=== PATIENT | male | born 1935 | race Caucasian/White ===

== ENCOUNTER 2016-11-11 21:43 | Inpatient (IN) | payer OTHER ==
[2016-11-11] MEDS ORDERED: MORPHINE IV ONE (23:17)
[2016-11-11] MEDS ORDERED: ZOFRAN IV ONE (23:18)
--- NOTE | 2016-11-11 23:18 | PROVIDER DOCUMENTATION ---
HPI-Musculoskeletal Pain/Inj - GENERAL Chief Complaint: Fall Stated Complaint: FALL Time Seen by Provider: 11/11/16 22:34 Source: patient, family - HX OF PRESENT ILLNESS-MUSKULOSKELTAL Nature of Presenting Problem: 81 year old WM presents with c/o left hip pain. just prior to arrival, pt was attempting to stand from the sitting position, lost his balance and fell onto a carpeted floor, his left hip landing first. pt denies any other trauma/injury. Quality of Pain: reports: aching, dull Severity in ED: mild Onset/Duration: just prior to arrival Timing: still present Any recent injury?: Yes Locality of Occurance: Home Similar Symptoms Previously?: No Recently seen or treated by another doctor?: No - FALL INJURY Location of Pain/Injury: reports: pelvis (left hip) Pain Radiation: reports: no radiation Reason for Fall: reports: lost balance, slipped, tripped Symptoms prior to fall:: reports: none. denies: headache, seizure, other, fever /chills/sweaty, chest pain, rapid heart rate, cough, diarrhea, vomiting, GI bleed, dizzy/lightheaded Loss of Consciousness: no loss of consciousness Injury Associated Symptoms: reports: joint pain, unable to bear weight, trouble walking - HIP/PELVIS PAIN/INJURY Hip Pain Location: reports: hip (L), pelvis Pain Radiation: reports: no radiation. denies: abdomen, back, buttocks, feet, genitals, groin, flank, lower legs, periumbilical, upper legs, other Context / Method of Injury: reports: fall Associated Symptoms: reports: denies symptoms. denies: loss of bladder control , loss of bowel control, lower back pain, muscle spasms, numbness in legs/feet, sensory/motor loss, tingling in legs/feet, weakness in legs/feet, other Review of Systems - Adult - REVIEW OF SYSTEMS - ADULT Constitutional: reports: no symptoms reported. denies: chills, fever, fatique Eyes: reports: no symptoms reported. denies: discharge, blurred vision, double vision Ears, Nose, Mouth & Throat: reports: no symptoms reported. denies: ear discharge, ear pain, nose pain, loose teeth, throat pain, throat swelling Cardiovascular: reports: no symptoms reported. denies: chest pain, palpitations , syncope Respiratory: reports: no symptoms reported. denies: chronic cough, cough, shortness of breath, wheezing Gastrointestinal: reports: no symptoms reported. denies: abdominal pain, diarrhea, nausea, vomiting Genitourinary: reports: no symptoms reported. denies: dysuria, hematuria, urgency Musculoskeletal: reports: see HPI, back pain (chronic), joint pain, neck pain ( chronic). denies: bone pain, frequent leg cramps, joint swelling, muscle aches , muscle weakness Integumentary: reports: no symptoms reported. denies: hives, itching, rash, skin sores/ulcer Neurological: reports: no symptoms reported. denies: ataxia, dizziness/vertigo , numbness, paresthesia, seizure, syncope, tremors Psychiatric: reports: no symptoms reported Endocrine: reports: no symptoms reported Hematologic/Lymphatic: reports: no symptoms reported Allergic/Immunologic: reports: no symptoms reported All Other Systems: Reviewed and Negative Past History - Adult - PAST MEDICAL HISTORY-ADULT Review of Records: reports: Old Records Reviewed, Nursing Assessment Review, Medications Reviewed, Social history reviewed & non-contributory. Major Childhood Illnesses: reports: denies history Cardiovascular: reports: HTN Respiratory: reports: denies history Gastrointestinal: reports: denies history Obstetrical/Gynecological: reports: denies history Genitourinary: reports: prostate cancer Musculoskeletal: reports: chronic pain, neck/back injury (chronnic neck/back pain) Neurological: reports: dementia, Parkinson's Endocrine/Immune: reports: denies history Other Conditions: reports: denies history - PRIOR SURGERIES/PROCEDURES Surgical/Procedure History: reports: hernia repair - IMMUNIZATION STATUS Childhood Immunizations: See Nurse Assessment Flu Vaccine: See Nurse Assessment - FAMILY HISTORY Family History: reviewed, not pertinent - SOCIAL HISTORY Smoking: denies, non-smoker Substance Use: none/never Alcohol Use Frequency: never Physical Exam-Injury Related - Physical Exam-Injury Related Initial Vital Signs Reviewed: Yes General Appearance: appears well, alert, no apparent distress. negative: mild distress, moderate distress, severe distress, lethargic, slow to respond, obtunded, combative Eyes: PERRL/EOMI (right pupil 3mm left 2mm), pink conjunctivae. negative: conjuctival exudate, pale conjunctivae, photophobia, scleral icterus, subconjunctival hemorrhage Head, Ears, Nose, Mouth & Throat: normocephalic/atraumatic, moist mucous membranes, normal ENT inspection Neck: non-tender, full range of motion, supple, normal inspection. negative: C- spine tenderness, decresed ROM, limited range of motion, pain on movement, trachial deviation, tender lateral, tender midline, vertebral point tenderness Respiratory: chest non-tender, lungs clear, normal breath sounds, no pleuratic chest pain, no respiratory distress, no accessory muscle use. negative: respiratory distress, decreased breath sounds, accessory muscle use, crackles, rales, rhonchi, stridor, wheezing Cardiovascular: normal peripheral pulses, regular rate, rhythm, no edema, no gallop, no JVD, no murmur Chest/Breast: no tenderness Peripheral Pulses: radial (R): 3+, radial (L): 3+, dorsalis-pedis (R): 3+, dorsalis-pedis (L): 3+ Abdominal Exam: normal bowel sounds, non tender, soft, no organomegaly, no pulsatile mass. negative: distended, guarding, rigid, rebound, tenderness, McBurney's point tenderness, Devlin's sign, obturator sign, prominent aortic pulsations, psoas, Rovsing's sign Male Genitalia: deferred Rectal Exam: deferred Hemoccult Exam: deferred Lymphatic: no adenopathy Back Exam: normal inspection, no CVA tenderness, no vertebral tenderness. negative: CVA tenderness, decreased range of motion, swelling, vertebral tenderness Extremity: normal range of motion, normal inspection, no pedal edema, no calf tenderness, normal capillary refill, pelvis stable, tenderness, other (without shortening/rotation). negative: non-tender, normal gait, abnormal NV exam, calf tenderness, deformity, joint effusion, pulse deficit, pedal edema, slow capillary refill, swelling Integumentary: normal color, warm/dry Neurologic: grossly normal, no motor/sensory deficits. negative: facial droop, focal weakness, motor weakness, sensory deficit Psych/Mental Status: normal mood/affect, normal thought content, normal thought process, oriented x 3 - Glascow Coma Score Best Eye Response (Brionna): (4) open spontaneously Best Verbal Response (Macon): (5) oriented Best Motor Response (Macon): (6) obeys commands Brionna Total: 15 Progress - PLAN OF CARE/RESULTS Progress/Plan/Lab Results: Laboratory Tests 11/11/16 11/11/16 11/11/16 23:55 23:55 23:55 WBC 8.47 RBC 3.51 L Hgb 10.7 L Hct 32.5 L MCV 92.6 MCH 30.5 MCHC 32.9 L RDW Std Deviation 13.1 Plt Count 181 MPV 10.2 Immature Gran % (Auto) 0.0 Neut % (Auto) 84.8 H Lymph % (Auto) 9.4 L Miner % (Auto) 3.7 Eos % (Auto) 1.7 Baso % (Auto) 0.4 Immature Gran # (Auto) 0.00 Neut # (Auto) 7.19 H Lymph # (Auto) 0.80 L Miner # (Auto) 0.31 Eos # (Auto) 0.14 Baso # (Auto) 0.03 PT 11.4 INR 1.07 Sodium 139 Potassium 4.4 Chloride 102 Carbon Dioxide 25 Anion Gap 12 BUN 24 H Creatinine 1.1 Estimated GFR/1.73 m2 > 60 BUN/Creatinine Ratio 22 Glucose 166 H Calculated Osmolality 285 Calcium 8.4 L Total Bilirubin 0.20 AST 16 ALT 9 L Alkaline Phosphatase 92 Total Protein 6.3 Albumin 3.8 Globulin 2.5 Albumin/Globulin Ratio 1.5 Urine Source Urine Color Urine Turbidity Urine pH Ur Specific [place] Urine Protein Ur Glucose (Stick) Ur Ketones (Stick) Urine Blood Urine Nitrite Urine Bilirubin Urobilinogen Dipstick Urine Leukocytes Urine WBC (Auto) Urine RBC (Auto) U Epithel Cells (Auto) Urine Bacteria (Auto) 11/12/16 00:20 WBC RBC Hgb Hct MCV MCH MCHC RDW Std Deviation Plt Count MPV Immature Gran % (Auto) Neut % (Auto) Lymph % (Auto) Miner % (Auto) Eos % (Auto) Baso % (Auto) Immature Gran # (Auto) Neut # (Auto) Lymph # (Auto) Miner # (Auto) Eos # (Auto) Baso # (Auto) PT INR Sodium Potassium Chloride Carbon Dioxide Anion Gap BUN Creatinine Estimated GFR/1.73 m2 BUN/Creatinine Ratio Glucose Calculated Osmolality Calcium Total Bilirubin AST ALT Alkaline Phosphatase Total Protein Albumin Globulin Albumin/Globulin Ratio Urine Source CATH Urine Color YELLOW Urine Turbidity CLEAR Urine pH 6.0 Ur Specific [place] 1.010 Urine Protein NEGATIVE Ur Glucose (Stick) NEGATIVE Ur Ketones (Stick) NEGATIVE Urine Blood MODERATE A Urine Nitrite NEGATIVE Urine Bilirubin NEGATIVE Urobilinogen Dipstick NORMAL Urine Leukocytes NEGATIVE Urine WBC (Auto) <10 Urine RBC (Auto) 10-20 A U Epithel Cells (Auto) <10 Urine Bacteria (Auto) NEGATIVE Orders Category Date Time Status Saline Loc DIRECTED Care 11/11/16 23:15 Active CHEST-1 VIEW [RAD] Stat Exams 11/11/16 22:47 Taken XRAY PELVIS W/HIP 2-3VW LT [RAD] Stat Exams 11/11/16 22:31 Taken CBC WITH DIFF [HEME] Stat Lab 11/11/16 23:55 Completed CMP [COMPREHENSIVE METABOLIC PANEL] [CHEM] Stat Lab 11/11/16 23:55 Completed PROTIME WITH INR [COAG] Stat Lab 11/11/16 23:55 Completed PTT [COAG] Stat Lab 11/11/16 23:55 Received UA NIMS W/REFLEX CULT [URINALYSIS] Stat Lab 11/12/16 00:20 Completed Morphine Med 11/11/16 23:17 Discontinued 4 mg IV NOW ONE Ondansetron [Zofran] Med 11/11/16 23:18 Discontinued 4 mg IV NOW ONE EKG [EKG] Stat Ther 11/11/16 23:17 Ordered Vital Signs - 24 hr 11/11/16 11/11/16 21:57 23:54 Temperature 98.1 F Pulse Rate 72 71 Respiratory 18 18 Rate Blood Pressure 151/75 131/58 O2 Sat by Pulse 97 98 Oximetry - XRAY 1 XRAY Study: Pelvis, Hip Impression: Abnormal (left hip frcature per Dr. Lim) - CONSULTS/PCP/HOSPITALIST Notification #1 *Consult/PCP/Hospitalist*: Dr. Gomez Time Discussed: :17 Consult Disposition: Will see in ED, Admit Departure - Departure Time of Disposition Order: 01:11 DIAGNOSIS: Hip fracture, left Qualifiers: Encounter type: initial encounter Fracture type: closed Qualified Code(s): S72.002A - Fracture of unspecified part of neck of left femur, initial encounter for closed fracture Disposition: ADMITTED INPATIENT 09 Certified Medical Emergency: Emergent Condition: Stable Attestation - Physician/ DEX Attestation Patient care was provided by Advanced Practice Provider:: Yes Advanced Practice Provider:: Richie Zaragoza Advanced Practice Provider documentation review:: The Mid-level provider documentation, treatment plan and medical decision making was reviewed by the physician who agrees with all treatment and medical decision making by the MLP.
[2016-11-12 00:02] LABS: MANUAL DIFF NEEDED? NO
[2016-11-12 00:03] LABS: BASO% 0.4 % (0.0-0.8); EOS# 0.14 X1000 (0.0-0.7); EOS% 1.7 % (0.0-10.0); HEMATOCRIT 32.5 % (42.0-52.0); HEMOGLOBIN 10.7 g/dL (14.0-18.0); LYMPH% 9.4 % (20.5-51.1); MCH 30.5 PG (27-31); MCHC 32.9 g/dL (33-37); MCV 92.6 FL (81-99); MONO# 0.31 X1000 (0.11-0.59); MONO% 3.7 % (1.7-9.3); MPV 10.2 FL (7.4-10.4); NEUT% 84.8 % (42.2-75.2); PLT 181 X1000 (130-400); RBC 3.51 XMIL (4.7-6.1)
[2016-11-12 00:12] LABS: INR 1.07; PROTIME 11.4 Seconds (9.2-11.7)
[2016-11-12 00:30] LABS: URINE CULTURE NEEDED? NO; URINE MICRO REVIEW NEEDED? NO; URINE SOURCE CATH
[2016-11-12 00:32] LABS: BILIRUBIN URINE NEGATIVE (NEGATIVE); BLOOD URINE MODERATE (NEGATIVE); COLOR YELLOW; GLUCOSE URINE NEGATIVE (NEGATIVE); LEUKOCYTES URINE NEGATIVE (NEGATIVE); NITRITE URINE NEGATIVE (NEGATIVE); PROTEIN URINE NEGATIVE (NEGATIVE); TURBIDITY URINE CLEAR (CLEAR); UROBILINOGEN URINE NORMAL (NORMAL)
[2016-11-12 00:33] LABS: UR EPITHELIAL CELLS <10 /HPF (<10); URINE BACTERIA NEGATIVE /HPF; URINE WBC <10 /HPF (<10)
[2016-11-12 00:34] LABS: AGAP 12; ALBUMIN 3.8 g/dL (3.5-5.0); ALKALINE PHOSPHATASE 92 U/L (32-122); BUN 24 mg/dL (8-22); CALCIUM 8.4 mg/dL (8.8-10.2); CHLORIDE 102 mmol/L (98-107); COSMO 285; GOT 16 U/L (10-34); GPT 9 U/L (10-44); POTASSIUM 4.4 mmol/L (3.5-5.1); SODIUM 139 mmol/L (136-145); TCO2 25 mmol/L (25-35); TOTAL PROTEIN 6.3 g/dL (6.3-8.3)
--- NOTE | 2016-11-12 00:39 | ED EKG INTERP ---
EKG Interpretation - EKG Time of EKG reading by physician:: 00:03 EKG Read and Signed by:: Saroj Lim EKG Interpretation (*Must complete 3 of following elements*): Normal Rate: 74 Rhythm: Normal sinus rhythm Attestation - Scribe Verification/Attestation Scribe:: Taurus Leavitt Acting as Scribe for:: Saroj Lim Scribe documention review:: This chart was documented by a scribe and accurately reflects the service the provider performed and the decisions made by the provider.
[2016-11-12] MEDS ORDERED: ZOFRAN IV PRN ×2 (01:40→12:59)
[2016-11-12] MEDS ORDERED: HEPARIN SUBQ STA (01:40)
[2016-11-12] MEDS ORDERED: NORCO-7.5 PO PRN (01:40)
[2016-11-12] MEDS ORDERED: MORPHINE IV PRN (01:40)
[2016-11-12] MEDS ORDERED: MORPHINE IV ONE (01:55)
[2016-11-12] MEDS ORDERED: SINEMET 25/250 PO SCH (02:15)
[2016-11-12] MEDS: NS 1,000 ML IV SCH ×2 (02:44→13:47)
--- NOTE | 2016-11-12 04:30 | HISTORY AND PHYSICAL ---
PRIMARY CARE PHYSICIAN: MD Kobe Acevedo [place], [place]. REASON FOR ADMISSION: Left hip pain. HISTORY OF PRESENT ILLNESS: Mr. Tashi Marshall is an 81-year-old male with past medical history of prior prostate cancer with radiation seeding treatment. He has a history of Parkinson's disease and is under the care of hospice. He also has a history of type 2 diabetes and hypertension. He comes in today complaining of left hip pain which occurred shortly after him trying to get up from a chair and ambulate. He said that he missed his footing and then fell and hit his head and the left side of his body on making contact with the floor. He says he denies any loss of consciousness, diplopia, headaches or focal weakness, numbness or tingling. He said he tried to get up and noticed that he had intense pain in the left hip. He was then brought to EMS after his called them. Currently, other than the pain in his left hip which is localized to the hip and does not radiate anywhere and is sharp in quality, he has no other complaints. REVIEW OF SYSTEMS: Twelve system review is negative. Positive findings per HPI. ALLERGIES: No known allergies. MEDICATIONS: He takes Tylenol 3 b.i.d. p.r.n., Flomax 0.4 mg daily, Sinemet 250/50 one q.6 hours, Xanax 0.25 mg at bedtime, Remeron 30 mg at bedtime, duloxetine 30 mg daily, lisinopril 5 mg daily, and Prevacid 30 mg daily. FAMILY HISTORY: Other than a history of stroke and CAD, no other additional history. PAST SURGICAL HISTORY: He has had right cataract surgery and inguinal hernia repair. SOCIAL HISTORY: He is and has not smoked in a long time. Patient was ambulatory until this fall. He denies any alcohol or illicit drug use. LABORATORY WORK/DIAGNOSTIC DATA: Notable for white count of 8000, hemoglobin 10 and hematocrit 30, platelets 181,000 with 84% neutrophils, BUN is 24, creatinine 1.1, glucose 166, calcium 8.4, normal transaminases. PT and PTT is normal. Urinalysis showed moderate blood. Hip x-rays showed left hip fracture. PHYSICAL EXAMINATION: VITAL SIGNS: Blood pressure is 130/58, heart rate 71, respirations is 18, temperature 98.1 degrees. He is 98% on room air. GENERAL: He is a frail, elderly man who is in [id number] distress from his pain and left hip. He is alert and oriented to person, place, and time. HEENT: Head is normocephalic, atraumatic. Eyes are slightly sunken in. He is anicteric and not pale. ENT and oropharyngeal exam shows dry oral mucosa with no exudates or erythema. No central cyanosis noted. NECK: Supple with noticeable JVD. No bruit or thyromegaly. No lymphadenopathy. He has decreased skin turgor on the skin overlying the supraclavicular area. The patient also has a tongue and mouth tremor and his speech is somewhat muffled. CHEST: Clear to auscultation with good air entry in both lung combs. CARDIOVASCULAR: First and second heart sounds heard. No gallops, murmurs, rubs. Rhythm is regular. ABDOMEN: Full, soft, nontender. No masses or organomegaly. Bowel sounds are hypoactive. RECTAL: Deferred at this time. EXTREMITIES: The patient's left lower extremity is shorter than the right. It is slightly internally rotated. Pulses distally intact in all extremities, with good volume. No edema, clubbing or peripheral cyanosis. Tenderness noted in the left hip area. No ecchymosis noted. NEUROLOGICAL: Grossly normal. Surprisingly, the patient was still able to move his left leg and flex his knee but was in a lot of pain. SKIN: Intact with no breakdown lesions or erythema. MUSCULAR EXAM: See above. ASSESSMENT: 1. Left hip fracture. 2. Hypertension 3. Dehydration 4. Type 2 diabetes. 5. Prior prostate cancer. 6. Reflux disease. PLAN: At this time, patient will be kept NPO, consulted orthopedist to see. Pain control and bowel management program initiated. Continue home medications, except for Remeron because of my concerns of a potential drug interaction with IV pain medication. Regarding the diabetes, we will put him on a sliding scale for now. We will hydrate the patient also not aggressively. We will hydrate patient due to the with clinical and laboratory evidence of dehydration. Hold blood pressure medications if systolic blood pressure less than 150. Considering the patient's age and his comorbidities, it is probably unlikely if he will undergo major surgery for correction. At best, best limited surgery for more of palliation or/pain control. However, will defer to the orthopedist to make our decision. DVT prophylaxis. One dose of heparin was given subcutaneously as I do not anticipate immediate surgery. Further decision to continue DVT prophylaxis to be determined by orthopedist.
[2016-11-12] MEDS: SINEMET 25/250 PO SCH ×4 (06:13→21:12)
[2016-11-12] MEDS: HUMALOG SUBQ SCH ×4 (07:29→22:34)
[2016-11-12] MEDS: MIRALAX PO SCH ×2 (08:34→21:06)
[2016-11-12] MEDS: PRINIVIL PO SCH (08:35)
[2016-11-12] MEDS: PROTONIX PO SCH (08:49)
[2016-11-12] MEDS: FLOMAX PO SCH (08:49)
[2016-11-12] MEDS: CYMBALTA PO SCH (08:56)
[2016-11-12] MEDS ORDERED: NON-FORMULARY MED (Lansoprazole [Prevacid] 30 MG) PO SCH (09:00)
[2016-11-12] MEDS ORDERED: CYMBALTA PO SCH (09:00)
[2016-11-12] MEDS ORDERED: PRINIVIL PO SCH (09:00)
[2016-11-12] MEDS ORDERED: FLOMAX PO SCH (09:00)
[2016-11-12] MEDS ORDERED: KEFZOL 1 GM/D5W 50 ML IV ONE (10:13)
--- NOTE | 2016-11-12 10:43 | Diag Imaging Result Document ---
PROCEDURE NAME: XRAY PELVIS W/HIP 2-3VW LT - 11/11/2016 LEFT HIP AND PELVIS, 3 VIEWS: FINDINGS: There is a nondisplaced intertrochanteric fracture of the left femur. There is no hip dislocation. There are atherosclerotic calcifications noted. There are multiple small metallic implants noted at the prostate bed. IMPRESSION: Nondisplaced intertrochanteric fracture of left femur.
--- NOTE | 2016-11-12 10:46 | Diag Imaging Result Document ---
PROCEDURE NAME: CHEST-1 VIEW - 11/11/2016 AP SUPINE CHEST: COMPARISON: 01/19/2015. FINDINGS: Heart size is normal. There is mild subsegmental atelectasis or scarring at the left base. The remainder of the lungs appear essentially clear. There is no pleural effusion or pneumothorax identified. IMPRESSION: Mild subsegmental atelectasis or scarring at left base. No other evidence of acute disease.
[2016-11-12] MEDS ORDERED: KEFZOL 1 GM/D5W 50 ML ONE (11:23)
[2016-11-12] MEDS ORDERED: NEOSPORIN G.U. IRRIGANT ONE (11:24)
[2016-11-12] MEDS ORDERED: CLAVE SECONDARY SET 11953 ONE (11:24)
[2016-11-12] MEDS ORDERED: MARCAINE 0.25% PF/EPI 1:200,000 ONE (12:01)
[2016-11-12] MEDS: MORPHINE ONE ×2 (12:20→12:30)
[2016-11-12] MEDS ORDERED: DIPRIVAN 1% ONE (12:29)
[2016-11-12] MEDS ORDERED: FENTANYL ONE (12:30)
[2016-11-12] MEDS ORDERED: NS 500 ML ONE (12:37)
[2016-11-12] MEDS ORDERED: HALDOL IV PRN (12:57)
[2016-11-12] MEDS ORDERED: MILK OF MAGNESIA PO PRN (12:58)
--- NOTE | 2016-11-12 14:04 | CONSULTATION ---
DATE OF CONSULTATION: 11/12/2016 CHIEF COMPLAINT: Left hip fracture. HISTORY: Patient is an 81-year-old who fell yesterday in his home, complaining of left hip pain. He presented to the emergency department, where he underwent x-rays which showed a minimally displaced left intertrochanteric fracture. Patient continues to complain of left hip pain. The patient and his family state that his normal state of ambulation is to walk with assistance of a walker. He denies other injury. PAST MEDICAL HISTORY: Parkinson disease, hypertension, reflux, type 2 diabetes. Currently under hospice care. ALLERGIES: No reported drug allergies. HOME MEDICATIONS: Flomax, Sinemet, Xanax, Remeron, duloxetine, lisinopril, and Prevacid. FAMILY HISTORY AND SOCIAL HISTORY: He is . is present in the room and assisted with history. The patient smoked in the past, but not currently. No alcohol. REVIEW OF SYSTEMS: Denies recent cold cough fevers chills chest pain, shortness of breath or other acute illness. PHYSICAL EXAMINATION: A pleasant male who is in no distress.HEENT: Conjunctivae pink. Mucous membranes are moist. Neck: Supple. Respirations: Nonlabored. Abdomen: Soft. Extremities: He identifies the left hip as the site of pain. He has pain with internal and external rotation. There is no significant shortening. He moves the ankle up and down on command. No hematoma or seroma or ecchymosis is noted around the hip. ASSESSMENT AND PLAN: Left hip intertrochanteric fracture. I discussed with the family and the patient the findings on x-ray. I saad pictures. I discussed the plan for surgical intervention with intramedullary nailing. We discussed the risks, benefits, options, and indications of this procedure. They understand there is a small risk of infection, blood clot, stiffness, nonunion need for additional surgery, continued pain. They understand there are other medical, other orthopedic, and other anesthesia risks associated with surgery and wished to proceed with surgical intervention.
--- NOTE | 2016-11-12 14:10 | OPERATIVE NOTE ---
PROCEDURE DATE: 11/12/2016 PREOP DIAGNOSIS: Left hip intertrochanteric fracture. POSTOP DIAGNOSIS: Left hip intertrochanteric fracture. PROCEDURE: Left hip intramedullary nail. SURGEON: Dr. Wojciech Caldera. ANESTHESIA: General. IV FLUIDS: Lactated Ringer's. ESTIMATED BLOOD LOSS: 25 mL. COMPLICATION: None. DRAINS: None. ANTIBIOTICS: Given IV preop. BRIEF HISTORY: Patient with a history of left hip intertrochanteric fracture. The patient has been counseled extensively about the risks, benefits, and options and indications of surgical intervention with intramedullary nailing. After thorough discussion of the risks, benefits, and options and indications the patient understands and wished to proceed with surgical intervention. ORTHOPEDIC IMPLANTS: Synthes short TFN with 95 degree helical blade, set screw and distal locking screws x40 mm long. PROCEDURE IN DETAIL: The patient was taken to the operating room, where a time-out sight verification procedure was performed. The left hip was identified as the site of surgery, prepped and draped in sterile usual fashion. Using small incision just proximal to the tip of greater trochanter sharp dissection was performed through the skin down to the level of tensor. The tensor was split in line with fibers and the greater trochanter was identified. Starting awl was placed on the tip of the greater trochanter. It was placed into the bone. A ball-tipped guide was then placed through the starting awl into the distal femur and the opening reamer was used. Next the nail had been assembled on the back table. The appropriate size nail was then passed into the femoral canal under fluoroscopic guidance and in seated into final position. Once this was in good position the extramedullary guide was used. A 2nd incision was made to allow the trocar to be placed on bone. Once this was all set the extramedullary guide was tight. A threaded guide pin was placed into the femoral neck and head under fluoroscopic guidance in multiple views. Once this was seated in good position a measurement was obtained. Opening reamer was used and then a helical blade was assembled. It was impacted into the femoral neck and head under fluoroscopic guidance in multiple views to a seated position. Next the set screw was applied. The guide pin and trocar were both removed. A 3rd incision was made to allow for the distal locking trocar to be placed. This was placed on bone through the tensor. A drill bit was used to drill the near and far cortexes and a measurement was obtained and a 40 mm distal locking screw was then placed in a standard fashion with good bone purchase. The guide was then removed. Final x-rays were obtained in multiple views. Good placement was confirmed. Irrigation of all incisions was performed and tensor fascia was closed with #1 Vicryl in envqlv-[id number] fashion, subcutaneous with 2-0 Vicryl in inverted subcutaneous fashion, skin was closed with sherri. Local anesthetic Marcaine with epinephrine was administered philip-incisional. Sterile dressings applied and the patient was taken to recovery in stable condition. Sponge and needle count correct x2. The patient tolerated procedure well. No complications.
[2016-11-12] MEDS: MORPHINE IV PRN ×2 (18:22→22:34)
[2016-11-12] MEDS: KEFZOL 1 GM/D5W 50 ML IV SCH (19:37)
[2016-11-12] MEDS: TYLENOL PO SCH ×2 (19:37→21:11)
[2016-11-12] MEDS ORDERED: XANAX PO SCH (21:00)
[2016-11-12] MEDS: PERIDEX MT SCH (21:06)
[2016-11-12] MEDS: COLACE PO SCH (21:12)
[2016-11-12] MEDS: XANAX PO SCH (23:42)
[2016-11-13] MEDS: XANAX PO SCH ×2 (00:06→20:41)
[2016-11-13] MEDS: TYLENOL PO SCH ×3 (03:03→19:14)
[2016-11-13] MEDS: KEFZOL 1 GM/D5W 50 ML IV SCH ×2 (03:03→12:00)
[2016-11-13] MEDS: MORPHINE IV PRN ×4 (03:07→22:44)
[2016-11-13] MEDS: SINEMET 25/250 PO SCH ×4 (03:09→17:20)
[2016-11-13 05:26] LABS: MANUAL DIFF NEEDED? NO
[2016-11-13 05:34] LABS: BASO% 0.3 % (0.0-0.8); EOS# 0.16 X1000 (0.0-0.7); EOS% 1.7 % (0.0-10.0); HEMOGLOBIN 8.2 g/dL (14.0-18.0); IMM GRAN# 0.02 X1000 (0.0-0.04); IMM GRAN% 0.2 % (0.0-0.5); LYMPH# 1.04 X1000 (1.2-3.4); LYMPH% 11.3 % (20.5-51.1); MCH 29.4 PG (27-31); MCHC 31.5 g/dL (33-37); MCV 93.2 FL (81-99); MONO# 0.69 X1000 (0.11-0.59); MONO% 7.5 % (1.7-9.3); MPV 10.9 FL (7.4-10.4); PLT 143 X1000 (130-400); RBC 2.79 XMIL (4.7-6.1)
[2016-11-13 05:57] LABS: AGAP 10; ALKALINE PHOSPHATASE 69 U/L (32-122); BUN 22 mg/dL (8-22); CALCIUM 7.9 mg/dL (8.8-10.2); CHLORIDE 100 mmol/L (98-107); COSMO 277; GOT 10 U/L (10-34); GPT < 5 U/L (10-44); POTASSIUM 4.3 mmol/L (3.5-5.1); SODIUM 136 mmol/L (136-145); TCO2 26 mmol/L (25-35); TOTAL BILIRUBIN 0.38 mg/dL (0.20-1.00); TOTAL PROTEIN 5.4 g/dL (6.3-8.3)
[2016-11-13] MEDS: HUMALOG SUBQ SCH ×4 (06:15→20:47)
[2016-11-13] MEDS: MIRALAX PO SCH ×2 (09:04→20:40)
[2016-11-13] MEDS: PERIDEX MT SCH ×2 (09:04→20:41)
[2016-11-13] MEDS: FLOMAX PO SCH (09:05)
[2016-11-13] MEDS: CYMBALTA PO SCH (09:05)
[2016-11-13] MEDS: FERROUS SULFATE PO SCH (09:05)
[2016-11-13] MEDS: ELIQUIS PO SCH ×2 (09:06→20:41)
[2016-11-13] MEDS: PRINIVIL PO SCH ×2 (09:06→12:02)
[2016-11-13] MEDS: PROTONIX PO SCH (09:06)
[2016-11-13] MEDS: OXY IR PO PRN ×3 (09:17→19:10)
--- NOTE | 2016-11-13 16:16 | PROGRESS NOTE ---
DATE: 11/13/2016 SUBJECTIVE: Patient is hard of hearing but reports still hurting from the left hip. Denies any fever or chills. OBJECTIVE: Vital Signs: Temperature 98.2 degrees, heart rate 79, respiratory rate 132/58, O2 saturation 94% on room air. General Examination: This is an 81-year-old male, lying in bed, in no acute distress. HEENT: Head is normocephalic, atraumatic. Anicteric sclerae. Pale conjunctivae. Mucous membranes moist. Neck: Supple. No JVD noted. No carotid bruits. No lymphadenopathy. No thyromegaly. Cardiovascular: S1, S2 heard. No murmurs, gallops, or rubs. Regular rate and rhythm. Respiratory: Clear bilaterally to auscultation. No work of breathing or using accessory muscles. Abdomen: Soft, nontender to palpation. Bowel sounds present. No organomegaly. Extremities: No cyanosis or edema. Peripheral pulses present in both legs. Left hip covered by dressing. Neurologic: Moves 4 extremities. Hard of hearing. LABORATORY DATA: White cell count 9.22, hemoglobin 8.2, hematocrit 26.0, platelets 143,000. BMP unremarkable. ASSESSMENT AND PLAN: 1. Left hip fracture status post left hip intramedullary nail. Patient is stable. Orthopedics is following this patient. 2. Hypertension. Blood pressure is well controlled. We will continue with the same management. 3. Diabetes type 2. Patient is on sliding scale insulin. 4. Prior prostate cancer, aware. 5. Reflux disease. Patient is on Protonix.
[2016-11-13] MEDS: COLACE PO SCH (20:41)
[2016-11-14] MEDS: MORPHINE IV PRN ×3 (01:26→15:55)
[2016-11-14] MEDS: SINEMET 25/250 PO SCH ×4 (03:39→21:59)
[2016-11-14] MEDS: TYLENOL PO SCH ×3 (06:30→21:59)
[2016-11-14] MEDS: OXY IR PO PRN ×2 (06:40→09:58)
[2016-11-14] MEDS: HUMALOG SUBQ SCH ×4 (06:44→22:01)
[2016-11-14 06:47] LABS: HEMATOCRIT 25.5 % (42.0-52.0)
[2016-11-14 07:07] LABS: HEMOGLOBIN 8.2 g/dL (14.0-18.0)
[2016-11-14] MEDS ORDERED: LR 1,000 ML ONE (08:53)
[2016-11-14] MEDS ORDERED: SODIUM CHLORIDE 0.9% 10 ML ONE (08:53)
[2016-11-14] MEDS ORDERED: XYLOCAINE-MPF 2% ONE (08:53)
[2016-11-14] MEDS ORDERED: ANESTHESIA PB SET 88 IN 5742 ONE (08:53)
[2016-11-14] MEDS ORDERED: EPHEDRINE ONE (08:53)
[2016-11-14] MEDS ORDERED: EXTENSION SET 32 IN 4522 ONE (08:53)
[2016-11-14] MEDS: MIRALAX PO SCH ×2 (09:14→21:59)
--- NOTE | 2016-11-14 09:14 | EKG Report ---
Test Performed on : 11/12/2016 00:03:22 AM Test Reason : admission Blood Pressure : / mmHG Vent. Rate : 074 BPM Atrial Rate : 074 BPM P-R Int : 164 ms QRS Dur : 088 ms QT Int : 404 ms P-R-T Axes : 050 075 078 degrees QTc Int : 448 ms Normal sinus rhythm. Normal ECG When compared with ECG of 20-JAN-2015 05:56, premature atrial complexes. are no longer present Unconfirmed Result
[2016-11-14] MEDS: CYMBALTA PO SCH (09:18)
[2016-11-14] MEDS: FERROUS SULFATE PO SCH (09:18)
[2016-11-14] MEDS: FLOMAX PO SCH (09:18)
[2016-11-14] MEDS: PROTONIX PO SCH (09:18)
[2016-11-14] MEDS: ELIQUIS PO SCH ×2 (09:18→22:00)
[2016-11-14] MEDS: PERIDEX MT SCH ×2 (09:19→22:12)
[2016-11-14] MEDS: PRINIVIL PO SCH (09:19)
[2016-11-14] MEDS ORDERED: STERILE WATER INJ. INJ ONE (10:14)
[2016-11-14] MEDS: OXY IR PO SCH ×3 (11:19→22:00)
--- NOTE | 2016-11-14 13:43 | PROGRESS NOTE ---
DATE: 11/14/2016 SUBJECTIVE: Patient is hard of hearing. By reports still hurting in the legs. He thinks that he needs more pain medication. Denies fever, chills, nausea, and vomiting. OBJECTIVE: Vital Signs: Temperature 98.3 degrees, heart rate 92, respiratory rate 20, blood pressure 139/80, O2 saturation 98% on room air. General Examination: This is an 81-year-old male, lying in bed, in no acute distress. HEENT: Head is normocephalic, atraumatic. Anicteric sclerae and pale conjunctivae. Mucous membranes moist. Neck: Supple. No JVD noted. No carotid bruits. No lymphadenopathy. No thyromegaly. Cardiovascular: S1, S2 heard. No murmurs, gallops, or rubs. Regular rate and rhythm. Respiratory: Clear bilaterally to auscultation. No work of breathing or using accessory muscles. Abdomen: Soft , nontender to palpation. Bowel sounds present. No organomegaly. Extremities: No clubbing, cyanosis, or edema. Peripheral pulses in both legs. Left hip covered by dressing. Neurological: Moves all 4 extremities. Hard of hearing. Follow commands. LABORATORY DATA: Hemoglobin 8.2. Hematocrit 25.5. ASSESSMENT AND PLAN: 1. Left hip fracture, status post left hip intramedullary nail. Patient is stable. Orthopedics following. 2. Hypertension. Blood pressure is under control. We will continue with the same management. 3. Anemia of blood loss probably secondary to this surgery, and also there may be a component of chronic disease, too. In any case, hemoglobin is stable. We will continue with the same management. 4. Diabetes mellitus type 2. Patient is on sliding scale insulin. Glucose is well controlled. We will continue with the same management. 5. Prostate cancer, aware. 6. Gastroesophageal reflux disease. Patient is on Protonix and feeling well. Overall this patient is doing well, and he will be sent to rehab when he is cleared by Orthopedics. [facility] [place] [facility]
[2016-11-14] MEDS ORDERED: GEODON IM SCH (21:00)
[2016-11-14] MEDS: COLACE PO SCH (22:00)
[2016-11-14] MEDS: XANAX PO SCH (22:00)
[2016-11-15 05:58] LABS: HEMATOCRIT 23.2 % (42.0-52.0); HEMOGLOBIN 7.5 g/dL (14.0-18.0)
[2016-11-15] MEDS: HUMALOG SUBQ SCH ×4 (06:12→16:16)
[2016-11-15] MEDS: SINEMET 25/250 PO SCH ×3 (06:16→16:20)
[2016-11-15] MEDS: TYLENOL PO SCH ×2 (06:16→16:17)
[2016-11-15] MEDS: OXY IR PO SCH ×3 (06:16→16:17)
[2016-11-15] MEDS ORDERED: NS 500 ML IV ONE (08:58)
[2016-11-15] MEDS: PROTONIX PO SCH (09:44)
[2016-11-15] MEDS: ELIQUIS PO SCH (09:44)
[2016-11-15] MEDS: MIRALAX PO SCH (09:44)
[2016-11-15] MEDS: CYMBALTA PO SCH (09:46)
[2016-11-15] MEDS: FERROUS SULFATE PO SCH (09:46)
[2016-11-15] MEDS: FLOMAX PO SCH (09:46)
[2016-11-15] MEDS: PRINIVIL PO SCH (09:50)
[2016-11-15] MEDS ORDERED: DULCOLAX PR ONE (11:19)
--- NOTE | 2016-11-15 11:32 | DISCHARGE SUMMARY ---
ADMISSION DATE: 11/12/2016 DISCHARGE DATE: 11/15/2016 CONSULTATIONS: Dr. Caldera with orthopedics. PERTINENT PROCEDURES: 1. Hip/pelvis x-ray showed nondisplaced intertrochanteric fracture of the left femur. 2. Left hip intramedullary nailing performed by Dr. Wojciech Caldera. DISCHARGE DIAGNOSES: 1. Left hip fracture, status post left hip intramedullary nailing performed by Dr. Caldera, followed by orthopedics. Patient going to rehabilitation. 2. Hypertension, controlled. 3. Anemia of acute blood loss secondary to surgery. Patient will receive a unit of blood today and then be discharged to rehabilitation. Hemodynamically, he is stable. 4. Diabetes mellitus type 2, controlled. 5. Prostate cancer. Aware. 6. Gastroesophageal reflux disease. HOSPITAL COURSE: Briefly, Mr. Marshall is an 81-year-old male with a past medical history of prior prostate cancer with radiation and seeding treatment, history of Parkinson's disease, under the care of hospice. Also has a history of type 2 diabetes with hypertension. He came in today complaining of left hip pain which occurred shortly after him trying to get up from a chair and ambulate. He stated he missed his footing and then fell, hit his head and the left side of body, making contact with the floor. Denied any loss of consciousness, headaches, or focal weakness, numbness, or tingling. He tried to get up, noticed an intense pain in his left hip. He was brought to the ED by his . The patient was admitted for an orthopedic consult as well as pain control. Orthopedics saw him on 11/12/2016. They also performed a left hip intramedullary nailing on 11/12/2016. The patient was ambulated on a daily basis, up with assistance, and up into the chair for at least 2 meals per day. The patient did have a drop in his hemoglobin and hematocrit from 10 and 32 to 8 and 26 to 7 and 23. He is being transfused with 1 unit of packed red blood cells. Then he will be discharged to rehab. Vital signs at the time of his discharge, temperature is 98.6 degrees, heart rate 86, respirations 16, blood pressure 144/ 75, O2 is 98% on room air. DISCHARGE DIET: Mechanical soft, diabetic. DISCHARGE MEDICATIONS: 1. Flomax 0.4 mg p.o. daily. 2. Sinemet 25/250 one each p.o. q.6 hours. 3. Duloxetine HCl 30 mg p.o. daily. 4. Prevacid 30 mg p.o. daily. 5. Lisinopril 5 mg p.o. daily. 6. Xanax 0.25 mg p.o. at bedtime. 7. Eliquis 2.5 mg p.o. b.i.d. 8. Mirtazapine 30 mg p.o. at bedtime. 9. OxyIR 5 mg p.o. q.8 hours. FOLLOWUP: The patient is being discharged to rehab. He will need to follow up with Dr. Caldera as indicated and as well as his primary care physician, Dr. Kobe Lopez, after rehab. The patient can return to the ED for any worsening of symptoms. Discharge time, 35 minutes. Dictated by ZACH Posey for Kenton Raza MD MTDD
[2016-11-15] MEDS: PERIDEX MT SCH (12:40)
[2016-11-15 16:46] VITALS: BP 110/58
== END 2016-11-15 17:06 | disposition hospice, home (50) | DRG 481 ==
LOC: ED 21:43 → 4N 11-12 01:35
PROVIDERS: ATTEND Internal Medicine
PROC: 0QH736Z Insertion of Intramedullary Internal Fixation Device into Left Upper Femur, Percutaneous Approach (ICD-10-PCS; principal; 2016-11-12 11:28)
PROC: 30233N1 Transfusion of Nonautologous Red Blood Cells into Peripheral Vein, Percutaneous Approach (ICD-10-PCS; 2016-11-15)
DX: S72.145A Nondisplaced intertrochanteric fracture of left femur, initial encounter for closed fracture (principal); D62 Acute posthemorrhagic anemia; G20 Parkinson's disease; E11.9 Type 2 diabetes mellitus without complications; E86.0 Dehydration; I10 Essential (primary) hypertension; K21.9 Gastro-esophageal reflux disease without esophagitis; W01.198A Fall on same level from slipping, tripping and stumbling with subsequent striking against other object, initial encounter; Z82.3 Family history of stroke; Z82.49 Family history of ischemic heart disease and other diseases of the circulatory system; Z92.3 Personal history of irradiation; Z85.46 Personal history of malignant neoplasm of prostate; Z87.891 Personal history of nicotine dependence; Z79.899 Other long term (current) drug therapy
CPT/HCPCS: 36415; 71010; 76000; 80053; 81001; 82948; 85014; 85018; 85025; 85610; 85730; 86850; 86900; 86901; 86920; 93005; 94761; 94799; 96374; 96375; J0690; J1630; J1644; J1815; J2270; J2405; J3010; J7030; J7040; J7120; P9016; 97116-GP; 97530-GP